=== PATIENT | female | born 1965 | race Caucasian/White ===

== ENCOUNTER → 2017-05-31 | Day surgery (SDC) | payer OTHER ==
[2017-05-19 12:34] VITALS: Ht 162.6 cm; Wt 124.5 kg
[~2017-05-31] VITALS: Ht 162.6 cm; Wt 124.5 kg
[~2017-05-31] MED LIST: ATROPINE SULFATE 0.1 MG/ML 5ML SYR IV PRN; BUPIVACAINE 0.5 % 5 MG/1 ML MPF 30ML VIAL ONE; DEXAMETHASONE SOD INJ 4 MG/ML VIAL ONE; EpHEDrine SULFATE INJ 50 MG/ML AMP ONE; FENTANYL CITRATE INJ 50 MCG/1 ML 2 ML VIAL IV PRN; FENTANYL CITRATE INJ 50 MCG/1 ML 2 ML VIAL ONE; GLYCOPYRROLATE INJ 0.2 MG/ML VIAL ONE; IBUPROFEN 600 MG TAB PO PRN; KETOROLAC TROMETHAMINE 30 MG/ML VIAL IV. PRN; LABETALOL HCL IV 5 MG/ML 20ML IV PRN; LACTATED RINGER'S 1000ML 1,000 ML IV SCH; LIDOCAINE HCL 2% 2 ML VIAL (20MG/ML) ONE; LIDOCAINE/EPINEPHRINE 1% 20 ML VIAL ONE; MIDAZOLAM HCL 1 MG/ML 2ML VIAL ONE; MULT-506 PO; NEOSTIGMINE METHYLSULFATE 5 MG/5 ML SYR ONE; ONDANSETRON INJ 2 MG/ML 2 ML VIAL IV PRN; ONDANSETRON INJ 2 MG/ML 2 ML VIAL ONE; OXYCODONE/ACETAMINOPHEN 5-325 TAB PO PRN; PHENYLEPHRINE HCL INJ 10 MG/ML VIAL ONE; PROPOFOL IV EMULSION 10 MG/ML 20 ML VIAL IV ONE; RANI300T2 PO; SODIUM CHLORIDE 0.9% 1000ML 1,000 ML IV SCH; SUCCINYLCHOLINE CHLORIDE 20 MG/ML 10 ML VIAL IV ONE
[2017-05-31 05:49] VITALS: BP 130/71; PULSE 84; TEMP 37.5; O2SAT 98
[2017-05-31 06:12] VITALS: TEMP 36.5
--- NOTE | 2017-05-31 07:13 | History & Physical Bridge Note ---
H&P Re-Evaluation Bridge Note: I have examined the patient, reviewed the History & Physical and in the interval since the performance of the History & Physical I have noted the following changes of clinical significance: No changes noted
--- NOTE | 2017-05-31 08:31 | [facility] Post Operative Brief Note ---
Immediate Operative Summary Operative Date May 31, 2017. Pre-Operative Diagnosis Left posterior-lateral chest wall lipoma Post-Operative Diagnosis Same as preop Procedure(s) Performed Removal of Left Posterior-Lateral Chest Wall Lipoma Surgeon Dr. Mcintosh Skilled Nursing Facility Counselor Surgeon(s) None Estimated Blood Loss 5 cc Findings See dictation Specimens A: left posterior-lateral chest wall lipoma Drains None Anesthesia Local with sedation Complication(s) None Disposition Recovery Room / PACU
--- NOTE | 2017-05-31 08:38 | Discharge Instructions ---
Discharge Instructions Date of Service May 31, 2017. Admission Reason for Admission: Lipoma Of Back Discharge Discharge Diagnosis / Problem: Same Discharge Goals Goal(s): Decrease discomfort, Prevent Disease Progression Activity Recommendations Activity Limitations: per Instructions/Follow-up section Shower/Bathe: tomorrow (Shower only for 2 weeks) . Instructions / Follow-Up Instructions / Follow-Up ACTIVITY RECOMMENDATIONS: * Walk as much as possible. * No strenuous activity with left arm for about 2 weeks. SPECIAL CARE INSTRUCTIONS: * Ice to surgical site on and off until bedtime tonight. * May shower in 24 hours. Let water run over area and pat dry. * Leave steri strips on for one week. * Call the surgeon's office with any questions or concerns - (ex. temperature higher than 101 degrees F, excessive bleeding or pain). MEDICATIONS: Resume previous medications unless instructed otherwise by your surgeon. * Ibuprofen 600 mg every 6 hours as needed with food * Tylenol 650 mg every 6 hours as needed FOLLOW UP VISIT: If not already scheduled, please call the office to schedule a two week follow- up appointment. Office number Current Hospital Diet Patient's current hospital diet: Discharge Diet Recommended Diet: Regular Diet Procedures Procedures Performed: Removal of Left Posterior-Lateral Chest Wall Lipoma Pending Studies Studies pending at discharge: yes List of pending studies: Pathology Medical Emergencies . Who to Call and When: Medical Emergencies: If at any time you feel your situation is an emergency, please call 911 immediately. . Non-Emergent Contact Non-Emergency issues call your: Primary Care Provider, Surgeon Call Non-Emergent contact if: your pain is worsening, wound has increased redness, wound has increased pain . "Provider Documentation" section prepared by Mahad Mcintosh. . VTE Core Measure Inpt VTE Proph given/why not?: Treatment not indicated
[2017-05-31 08:45] VITALS: BP 113/64; PULSE 79; TEMP 36.6; O2SAT 96
--- NOTE | 2017-05-31 08:59 | OPERATIVE REPORT ---
DATE OF OPERATION: 05/31/2017 PREOPERATIVE DIAGNOSIS: Lipoma in the posterolateral aspect of left thorax. POSTOPERATIVE DIAGNOSIS: Same. PROCEDURE: Removal of lipoma. SURGEON: Dr. Mcintosh. FINDINGS: The patient had a 12.9 x 2 cm lipoma in the posterolateral aspect of her left side of her chest. There were no other lipomas identified. There was extension down to the chest wall, but there was no adhesion to the chest wall. TECHNIQUE: The patient was given intravenous sedation and the area was prepped and draped in the usual sterile fashion that had been previously marked in the holding area. She had the skin and subcutaneous tissue anesthetized with a 50:50 mixture of 0.5% Marcaine and 1% Xylocaine with epinephrine. The incision was made and carried down through the subcutaneous tissue. The capsule of the lipoma was easily identified. I was able to establish a plane bluntly between the capsule of the lipoma and the overlying dermis and this was divided using cautery. I then was able to continue my dissection inferiorly and superiorly bluntly. There were some fibrous attachments that were divided using cautery. I then worked posteriorly back to the chest wall. Additional thicker fibrous attachments were divided until I could bluntly establish a plane behind the lipoma. This was down to chest wall. It was then peeled posteriorly and any further deep attachments were removed and divided and the lipoma was removed in total. The area was inspected for bleeding and none was seen. The deep tissues were approximated with a running 2-0 Vicryl. The deep subcutaneous tissue was closed with running 2-0 Vicryl and the superficial subcutaneous tissue was closed with running 3-0 Vicryl. The skin was closed with 4-0 Monocryl in a running subcuticular fashion. The skin was cleansed, dried, benzoin placed and Steri-Strips applied. The estimated blood loss was 5 mL. Sponge, needle and instrument counts were correct prior to closure. The patient tolerated the surgical procedure without complication and was transferred to recovery. I attest to the content of the Intraoperative Record and any orders documented therein. Any exception s are noted below.
[2017-05-31 09:15] VITALS: BP 106/62; PULSE 85; O2SAT 100
--- NOTE | 2017-05-31 09:24 | Anesthesiology Progress Note ---
Anesthesia Post Op Note Date & Time May 31, 2017 at 09:24 Vital Signs Vital Signs Past 12 Hours Date Time Temp Pulse Resp B/P (MAP) Pulse Ox O2 Delivery O2 Flow Rate FiO2 05/31/17 09:15 85 18 106/62 100 Room Air 05/31/17 08:45 36.6 79 18 113/64 96 Room Air 05/31/17 08:35 85 16 105/71 99 Room Air 05/31/17 08:25 86 16 111/72 99 Room Air 05/31/17 08:18 37 82 16 103/65 99 Room Air 05/31/17 06:12 36.5 05/31/17 05:49 37.5 84 18 130/71 (90) 98 Room Air Notes Mental Status: alert / awake / arousable, participated in evaluation Pt Amnestic to Procedure: Yes Nausea / Vomiting: adequately controlled Pain: adequately controlled Airway Patency, RR, SpO2: stable & adequate BP & HR: stable & adequate Hydration State: stable & adequate Anesthetic Complications: no major complications apparent
[2017-05-31 09:40] VITALS: BP 110/68; PULSE 81; TEMP 36.4; O2SAT 97
== END | disposition home or self-care (01) ==
LOC: C.ACU 05:04
PROVIDERS: ATTEND Surgery
DX: D17.4 Benign lipomatous neoplasm of intrathoracic organs (principal); G47.30 Sleep apnea, unspecified